=== PATIENT | female | born 1990 | race Caucasian/White ===

== ENCOUNTER 2016-09-03 16:29 | Emergency (ER) | payer OTHER ==
--- NOTE | 2016-09-03 19:07 | EDDOCDS ---
Physician Documentation [facility] Name: Philomena Lopez Age: 26 yrs Sex: Female : 1990 Arrival Date: 09/03/2016 Time: 16:29 Bed TR7 Private MD: Unknown, Family Dr Disposition: 09/03/16 18:57 Discharged to Home/Self Care. Impression: Acute sinusitis, unspecified. - Condition is Stable. - Discharge Instructions: Sinusitis, Adult. - Prescriptions for Augmentin 875- 125 mg Oral Tablet - take 1 tablet by ORAL route every 12 hours for 10 days; 20 tablet. Fluticasone 50 mcg/actuation Nasal [place], Suspension - inhale 2 spray by INTRANASAL route once daily; 1 bottle. - Medication Reconciliation, Local Pharmacy Hours form. - Follow up: Emergency Department; When: As needed; Reason: Worsening of conditions. [facility]: [facility]; When: Call to arrange an appointment; Reason: Wound/Symptom Recheck, Recheck today's complaints, Continuance of care. - Problem is new. - Symptoms are unchanged. Historical: - Allergies: no known allergies; - Home Meds: 1. citalopram 10 mg Oral tab 1 tab once daily - PMHx: Anxiety; - PSHx: none; - Social history: Smoking status: Patient states former smoker of tobacco. No barriers to communication noted, The patient speaks fluent Greek. - Family history: Not pertinent. - : The pt / caregiver states he / she is not on anticoagulants. Home medication list is obtained from the patient. - Exposure Risk Screening:: None identified. 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 2 in. (187.96 cm) (R); 16:30 Body Mass Index 25.68 (90.72 kg, 187.96 cm) dd6 Signatures: Kyle Rosales RN RN ms2 Halima Munoz RN RN rs3 Deana Josue PA-C PA-C dt4 MTDD
--- NOTE | 2016-09-03 19:07 | EDDOCDS ---
Nurse's Notes [facility] Name: Philomnea Lopez Age: 26 yrs Sex: Female : 1990 Arrival Date: 09/03/2016 Time: 16:29 Bed TR7 Private MD: Unknown, Family Dr Diagnosis: Acute sinusitis, unspecified Presentation: 09/03 16:32 Presenting complaint: Patient states: sinus pain/congestion for two days. Adult Sepsis rs3 Screening: The patient does not have new or worsening altered mentation. Patient's respiratory rate is less than 22. Systolic blood pressure is greater than 100. Patient has a qSOFA score of 0- Negative Sepsis Screen. Suicide/Homicide risk assessment- the patient denies having any suicidal and/or homicidal ideations and does not present with any other emotional, behavioral or mental health complaints. Status: Patient is not a customer service associate or dependent. Transition of care: patient was not received from another setting of care. 16:32 Acuity: NEGRO Level 4 rs3 16:32 Method Of Arrival: Walkin/Carried/Asstd rs3 Triage Assessment: 16:33 General: Appears in no apparent distress. Pain: Location: right cheek and left cheek. rs3 Pt Declines HIV testing. 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 citalopram 10 mg Oral tab 1 tab once daily - PMHx: Anxiety; - PSHx: none; - Social history: Smoking status: Patient states former smoker of tobacco. No barriers to communication noted, The patient speaks fluent Kyrgyz. - Family history: Not pertinent. - : The pt / caregiver states he / she is not on anticoagulants. Home medication list is obtained from the patient. - Exposure Risk Screening:: None identified. Screenin:17 Screening information is obtained from the patient. Fall risk: No risks identified. ms2 Assistance ADL's: requires no assistance with activities of daily living. Abuse/DV Screen: The patient / caregiver reports he/she is: not in a situation that causes fear, pain or injury. Nutritional screening: No deficits noted. Advance Directives: Currently, there is no health care proxy. There is no active DNR order. There is no living will. 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 Advance directive information has not previously been placed in an [facility] medical record. Further advance directive information is declined. home support is adequate. Assessment: 18:16 General: Appears in no apparent distress, Behavior is cooperative. Pain: Location: left ms2 cheek Pain currently is 6 out of 10 on a pain scale. Neurological: Level of Consciousness is awake, alert, obeys commands. Respiratory: No deficits noted. Airway is patent Respiratory effort is even, unlabored, Respiratory pattern is regular, symmetrical. GI: Abdomen is flat, non- distended. Derm: Skin is pink, warm & dry. Musculoskeletal: Range of motion intact in all extremities. 19:05 General: Appears in no apparent distress, Behavior is cooperative. Neurological: Level ms2 of Consciousness is awake, alert, obeys commands. Respiratory: No deficits noted. Airway is patent Respiratory effort is even, unlabored, Respiratory pattern is regular, symmetrical. Derm: Skin is pink, warm & dry. Musculoskeletal: Range of motion intact in all extremities. Vital Signs: 16:30 BP 139 / 78; Pulse 60; Resp 18 S; Temp 97.7(O); Pulse Ox 100% on R/A; Weight 90.72 kg dd6 (R); Height 6 ft. 2 in. (187.96 cm) (R); 16:30 Body Mass Index 25.68 (90.72 kg, 187.96 cm) dd6 Vitals: 16:30 Log In Time: September 03, 2016 at 16:28. dd6 ED Course: 16:30 Patient visited by Mango Turcios PCA. dd6 16:30 Unknown, Family Dr is Private Physician. dd6 16:30 Patient moved to Waiting dd6 16:31 Patient moved to Pre RCE dd6 16:32 Triage Initiated rs3 18:16 Patient visited by Kyle Rosales RN. ms2 18:16 Patient moved to Triage 1 ms2 18:18 The patient / caregiver is instructed regarding the plan of care and ED course. ms2 18:18 No IV's were initiated during this patient's visit. No procedures done that require ms2 assistance. 18:45 Deana Josue PA-C is [facility]. dt4 18:45 Kirby Garcia MD is Attending Physician. dt4 18:45 Patient visited by Deana Josue PA-C. dt4 18:57 [facility] is Referral Physician. dt4 19:03 Patient moved to 7 ct3 19:05 Patient visited by Kyle Rosales RN. ms2 19:06 The patient / caregiver is instructed regarding the plan of care and ED course. ms2 Order Results: There are currently no results for this order. Outcome: 18:57 Discharge ordered by Provider. dt4 19:06 Discharge Assessment: patient administered narcotics - no. The following High Risk ms2 Discharge criteria are identified: None. Discharged to home ambulatory. Condition: stable. Discharge instructions given to patient, Instructed on discharge instructions, follow up and referral plans. medication usage, Demonstrated understanding of instructions, medications, Pt was receptive of discharge instructions/ teaching. Prescriptions given X 2 faxed. No special radiology studies were completed. Property sent home with patient. 19:06 Patient left the ED. ms2 Signatures: Kyle Rosales,ZAY RN ms2 Mango Turcios, FILTER PRESS OPERATOR FILTER PRESS OPERATOR dd6 Halima Munoz RN RN rs3 Norma Santos, FILTER PRESS OPERATOR FILTER PRESS OPERATOR ct3 Deana Josue, PA-C PA-C dt4 RITAD
--- NOTE | 2016-09-05 20:07 | EDDOCDS ---
Physician Documentation [facility] Name: Philomena Lopez Age: 26 yrs Sex: Female : 1990 Arrival Date: 09/03/2016 Time: 16:29 Bed TR7 Private MD: Unknown, Family Dr Disposition: 09/03/16 18:57 Discharged to Home/Self Care. Impression: Acute sinusitis, unspecified. - Condition is Stable. - Discharge Instructions: Sinusitis, Adult. - Prescriptions for Augmentin 875- 125 mg Oral Tablet - take 1 tablet by ORAL route every 12 hours for 10 days; 20 tablet. Fluticasone 50 mcg/actuation Nasal [place], Suspension - inhale 2 spray by INTRANASAL route once daily; 1 bottle. - Medication Reconciliation, Local Pharmacy Hours form. - Follow up: Emergency Department; When: As needed; Reason: Worsening of conditions. Follow [facility]: [facility]; When: Call to arrange an appointment; Reason: Wound/Symptom Recheck, Recheck today's complaints, Continuance of care. - Problem is new. - Symptoms are unchanged. Historical: - Allergies: no known allergies; - Home Meds: 1. citalopram 10 mg Oral tab 1 tab once daily - PMHx: Anxiety; - PSHx: none; - Social history: Smoking status: Patient states former smoker of tobacco. No barriers to communication noted, The patient speaks fluent Tanzanian. - Family history: Not pertinent. - : The pt / caregiver states he / she is not on anticoagulants. Home medication list is obtained from the patient. - Exposure Risk Screening:: None identified. 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 2 in. (187.96 cm) (R); 16:30 Body Mass Index 25.68 (90.72 kg, 187.96 cm) dd6 MDM: 19:14 [facility] Payment Agreement was scanned into [employer] and attached to record. jp5 19:15 Financial registration complete. jp5 09/04 10:07 T-Sheet-- Draft Copy was scanned into [employer] and attached to record. gb Signatures: Kyle Rosales RN RN ms2 Christen Santana, Reg Reg gb Halima Munoz RN RN rs3 Deana Josue, ARPIT PABrigitte mims4 Placido Dave jp5 The chart was reviewed and I authenticate all verbal orders and agree with the evaluation and treatment provided.Attachments: 09/03 19:14 [facility] Payment Agreement jp5 09/04 10:07 T-Sheet-- Draft Copy gb Chart Complete MTDD
--- NOTE | 2016-09-05 20:07 | EDDOCDS ---
Nurse's Notes [facility] Name: Philomena Lopez Age: 26 yrs Sex: Female : 1990 Arrival Date: 09/03/2016 Time: 16:29 Bed TR7 Private MD: Unknown, Family Dr Diagnosis: Acute sinusitis, unspecified Presentation: 09/03 16:32 Presenting complaint: Patient states: sinus pain/congestion for two days. Adult Sepsis rs3 Screening: The patient does not have new or worsening altered mentation. Patient's respiratory rate is less than 22. Systolic blood pressure is greater than 100. Patient has a qSOFA score of 0- Negative Sepsis Screen. Suicide/Homicide risk assessment- the patient denies having any suicidal and/or homicidal ideations and does not present with any other emotional, behavioral or mental health complaints. Status: Patient is not a service officer or dependent. Transition of care: patient was not received from another setting of care. 16:32 Acuity: NEGRO Level 4 rs3 16:32 Method Of Arrival: Walkin/Carried/Asstd rs3 Triage Assessment: 16:33 General: Appears in no apparent distress. Pain: Location: right cheek and left cheek. rs3 Pt Declines HIV testing. MANAGER MISSION: 16:33 LMP 08/29/2016 rs3 Historical: - Allergies: no known allergies; - Home Meds: 1. citalopram 10 mg Oral tab 1 tab once daily - PMHx: Anxiety; - PSHx: none; - Social history: Smoking status: Patient states former smoker of tobacco. No barriers to communication noted, The patient speaks fluent Bulgarian. - Family history: Not pertinent. - : The pt / caregiver states he / she is not on anticoagulants. Home medication list is obtained from the patient. - Exposure Risk Screening:: None identified. Screenin:17 Screening information is obtained from the patient. Fall risk: No risks identified. ms2 Assistance ADL's: requires no assistance with activities of daily living. Abuse/DV Screen: The patient / caregiver reports he/she is: not in a situation that causes fear, pain or injury. Nutritional screening: No deficits noted. Advance Directives: Currently, there is no health care proxy. There is no active DNR order. There is no living will. There is no Power of Administrative Personal Assistant. Advance directive information has not previously been placed in an [facility] medical record. Further advance directive information is declined. home support is adequate. Assessment: 18:16 General: Appears in no apparent distress, Behavior is cooperative. Pain: Location: left ms2 cheek Pain currently is 6 out of 10 on a pain scale. Neurological: Level of Consciousness is awake, alert, obeys commands. Respiratory: No deficits noted. Airway is patent Respiratory effort is even, unlabored, Respiratory pattern is regular, symmetrical. GI: Abdomen is flat, non- distended. Derm: Skin is pink, warm & dry. Musculoskeletal: Range of motion intact in all extremities. 19:05 General: Appears in no apparent distress, Behavior is cooperative. Neurological: Level ms2 of Consciousness is awake, alert, obeys commands. Respiratory: No deficits noted. Airway is patent Respiratory effort is even, unlabored, Respiratory pattern is regular, symmetrical. Derm: Skin is pink, warm & dry. Musculoskeletal: Range of motion intact in all extremities. Vital Signs: 16:30 BP 139 / 78; Pulse 60; Resp 18 S; Temp 97.7(O); Pulse Ox 100% on R/A; Weight 90.72 kg dd6 (R); Height 6 ft. 2 in. (187.96 cm) (R); 16:30 Body Mass Index 25.68 (90.72 kg, 187.96 cm) dd6 Vitals: 16:30 Log In Time: September 03, 2016 at 16:28. dd6 ED Course: 16:30 Patient visited by Mango Turcios PCA. dd6 16:30 Unknown, Family Dr is Private Physician. dd6 16:30 Patient moved to Waiting dd6 16:31 Patient moved to Pre RCE dd6 16:32 Triage Initiated rs3 18:16 Patient visited by Kyle Rosales RN. ms2 18:16 Patient moved to Triage 1 ms2 18:18 The patient / caregiver is instructed regarding the plan of care and ED course. ms2 18:18 No IV's were initiated during this patient's visit. No procedures done that require ms2 assistance. 18:45 Deana Josue PA-C is PSYCHIATRICP. dt4 18:45 Kirby Garcia MD is Attending Physician. dt4 18:45 Patient visited by Deana Josue PA-C. dt4 18:57 [facility] is Referral Physician. dt4 19:03 Patient moved to TR7 ct3 19:05 Patient visited by Kyle Rosales,ZAY. ms2 19:06 The patient / caregiver is instructed regarding the plan of care and ED course. ms2 19:12 Patient name changed from Philomena\S\\S\John\S\ to Philomena\S\Michelle\S\John. EDMS 19:14 [facility] Payment Agreement was scanned into [employer] and attached to record. jp5 09/04 10:07 T-Sheet-- Draft Copy was scanned into [employer] and attached to record. gb Order Results: There are currently no results for this order. Outcome: 09/03 18:57 Discharge ordered by Provider. dt4 19:06 Discharge Assessment: patient administered narcotics - no. The following High Risk ms2 Discharge criteria are identified: None. Discharged to home ambulatory. Condition: stable. Discharge instructions given to patient, Instructed on discharge instructions, follow up and referral plans. medication usage, Demonstrated understanding of instructions, medications, Pt was receptive of discharge instructions/ teaching. Prescriptions given X 2 faxed. No special radiology studies were completed. Property sent home with patient. 19:06 Patient left the ED. ms2 Signatures: [facility] EDMN Kyle Rosales,ZAY RN ms2 Esther Christen, Reg Reg gb Mango Turcios, PIECE WORK CHECKER PIECE WORK CHECKER dd6 Halima Munoz RN RN rs3 Norma Santos, PIECE WORK CHECKER PIECE WORK CHECKER ct3 Deana Josue, PALatrellC PALatrellC dt4 Placido Dave jp5 Chart Complete MTDD
--- NOTE | 2016-09-05 20:07 | EDDOCDS ---
Physician Documentation [facility] Name: Philomena Lopez Age: 26 yrs Sex: Female : 1990 Arrival Date: 09/03/2016 Time: 16:29 Bed TR7 Private MD: Unknown, Family Dr Disposition: 09/03/16 18:57 Discharged to Home/Self Care. Impression: Acute sinusitis, unspecified. - Condition is Stable. - Discharge Instructions: Sinusitis, Adult. - Prescriptions for Augmentin 875- 125 mg Oral Tablet - take 1 tablet by ORAL route every 12 hours for 10 days; 20 tablet. Fluticasone 50 mcg/actuation Nasal [place], Suspension - inhale 2 spray by INTRANASAL route once daily; 1 bottle. - Medication Reconciliation, Local Pharmacy Hours form. - Follow up: Emergency Department; When: As needed; Reason: Worsening of conditions. Follow [facility]: [facility]; When: Call to arrange an appointment; Reason: Wound/Symptom Recheck, Recheck today's complaints, Continuance of care. - Problem is new. - Symptoms are unchanged. Historical: - Allergies: no known allergies; - Home Meds: 1. citalopram 10 mg Oral tab 1 tab once daily - PMHx: Anxiety; - PSHx: none; - Social history: Smoking status: Patient states former smoker of tobacco. No barriers to communication noted, The patient speaks fluent Zimbabwean. - Family history: Not pertinent. - : The pt / caregiver states he / she is not on anticoagulants. Home medication list is obtained from the patient. - Exposure Risk Screening:: None identified. 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 2 in. (187.96 cm) (R); 16:30 Body Mass Index 25.68 (90.72 kg, 187.96 cm) dd6 MDM: 19:14 [facility] Payment Agreement was scanned into [employer] and attached to record. jp5 19:15 Financial registration complete. jp5 09/04 10:07 T-Sheet-- Draft Copy was scanned into [employer] and attached to record. gb Signatures: Kyle Rosales RN RN ms2 Christen Santana, Reg Reg gb Halima Munoz RN RN rs3 Deana Josue, ARPIT PABrigitte mims4 Placido Dave jp5 The chart was reviewed and I authenticate all verbal orders and agree with the evaluation and treatment provided.Attachments: 09/03 19:14 [facility] [place] jp5 09/04 10:07 T-Sheet-- Draft Copy gb Chart Complete MTDD
== END 2016-09-03 19:06 | disposition home or self-care (01) ==
LOC: M ED 16:29
DX: J01.90 Acute sinusitis, unspecified (principal); F41.9 Anxiety disorder, unspecified; Z87.891 Personal history of nicotine dependence; Z79.899 Other long term (current) drug therapy